=== PATIENT | male | born 1960 | race African-American/Black ===

== ENCOUNTER 2022-08-17 08:26 | Inpatient (IN) ==
[2022-08-17] MEDS ORDERED: SODIUM CHLORIDE 0.9% 1,000 ML IV STA ×2 (09:34→12:11)
[2022-08-17] MEDS ORDERED: ONDANSETRON 4 MG/2 ML VIAL IV STA (09:34)
[2022-08-17 10:24] LABS: Basophils % 0.3 % (0.0-0.8); Eosinophils # 0.1 10*3/uL (0.0-0.87); Eosinophils % 0.9 % (0.00-10.9); Hematocrit 37.2 VOL% (42.0-52.0); Hemoglobin 13.3 GM/DL (14.0-18.0); Immature Granulocytes % 1.7 %; Immature Granulocytes Absolute 0.23 #; Lymphocytes # 0.9 10*3/uL (1.4-4.0); Lymphocytes % 6.6 % (21.2-54.2); Mean Corpuscular HGB Conc 35.8 GM/DL (32-36); Mean Platelet Volume 12.6 FL (9.6-12.0); Monocytes # 1.9 10*3/uL (0.11-0.8); Monocytes % 14.1 % (1.7-12.7); Neutrophils % 76.4 % (38.7-73.9); Platelet Count 310 T/CUMM (130-400); Red Blood Count 4.48 MC/CUMM (3.8-5.5); Red Cell Distribution Width 23.2 % (9.3-17.3); White Blood Count 13.7 T/CUMM (4-12)
[2022-08-17 10:57] LABS: Albumin 1.5 G/DL (3.4-5.0); Osmolality,Calculated 282.1 MOS/KG (273-304); Potassium 4.7 MMOL/L (3.5-5.1); Total Protein 6.8 G/DL (6.4-8.2)
[2022-08-17] MEDS ORDERED: DEXTROSE 50% 25 GM/50 ML VIAL IV STA ×2 (12:05→16:41)
[2022-08-17] MEDS ORDERED: DEXTROSE 50% 25 GM/50 ML SYRINGE IV STA (12:06)
[2022-08-17 14:11] LABS: Hyaline Casts,Urine 9 /LPF (0-3); Mucus,Urine Occasional /LPF (Occasional); Protein,Urine Trace mg/dL (Negative); RBC,Urine 82 /HPF (0-4); Squamous Epithelial Cell,Urine Occasional /HPF (0-10); Urine Appearance Clear (Clear); Urine Color Yellow (Yellow); Urine pH 5.5 (4.5-8.0)
[2022-08-17 14:12] LABS: Bilirubin,Urine Large mg/dL (Negative); Blood, Urine Large mg/dL (Negative); Glucose,Urine (UA) Negative (Negative); Ketones,Urine Negative (Negative); Nitrite,Urine Negative (Negative)
[2022-08-17 14:27] LABS: Barbiturates Screen,Urine Negative (Negative); Benzodiazepines Screen,Urine Negative (Negative); Cannabinoid Screen,Urine Positive (Negative); Opiate Screen,Urine Negative (Negative); Phencyclidine Screen,Urine Negative (Negative)
[2022-08-17] MEDS ORDERED: SIMETHICONE CHEW 125 MG TABLET PO PRN (15:06)
[2022-08-17] MEDS ORDERED: GLUCAGON 1 MG VIAL IM PRN (15:06)
[2022-08-17] MEDS ORDERED: DOCUSATE SODIUM 100 MG CAPSULE PO PRN (15:06)
[2022-08-17] MEDS ORDERED: DEXTROSE 10% 250 ML BAG IV PRN (15:06)
[2022-08-17] MEDS: SODIUM CHLORIDE 0.9% 1,000 ML IV SCH ×2 (16:32→23:10)
[2022-08-17] MEDS ORDERED: DEXTROSE 10% 250 ML BAG IV STA (16:46)
[2022-08-17 18:18] LABS: Calcium 8.3 MG/DL (8.5-10.1); Osmolality,Calculated 286.7 MOS/KG (273-304); Potassium 5.3 MMOL/L (3.5-5.1)
[2022-08-17] MEDS: ONDANSETRON 4 MG/2 ML VIAL IV PRN (19:41)
[2022-08-17] MEDS: MORPHINE 2 MG/1 ML SYRINGE IV PRN (19:41)
[2022-08-18] MEDS: SODIUM CHLORIDE 0.9% 1,000 ML IV SCH ×2 (01:30→11:30)
[2022-08-18] MEDS: MORPHINE 2 MG/1 ML SYRINGE IV PRN ×3 (03:10→20:19)
[2022-08-18] MEDS: ONDANSETRON 4 MG/2 ML VIAL IV PRN ×2 (03:11→15:05)
[2022-08-18 04:25] LABS: Basophils # 0.1 10*3/uL (0.0-0.2); Basophils % 0.5 % (0.0-0.8); Eosinophils # 0.3 10*3/uL (0.0-0.87); Eosinophils % 2.4 % (0.00-10.9); Hematocrit 34.2 VOL% (42.0-52.0); Hemoglobin 12.2 GM/DL (14.0-18.0); Immature Granulocytes % 2.4 %; Immature Granulocytes Absolute 0.26 #; Mean Corpuscular HGB Conc 35.7 GM/DL (32-36); Mean Platelet Volume 11.6 FL (9.6-12.0); Monocytes # 2.2 10*3/uL (0.11-0.8); Monocytes % 19.9 % (1.7-12.7); Neutrophils % 65.8 % (38.7-73.9); Platelet Count 268 T/CUMM (130-400); Red Blood Count 4.12 MC/CUMM (3.8-5.5); Red Cell Distribution Width 23.1 % (9.3-17.3); White Blood Count 10.9 T/CUMM (4-12)
[2022-08-18 04:42] LABS: Albumin 1.4 G/DL (3.4-5.0); Calcium 8.2 MG/DL (8.5-10.1); Osmolality,Calculated 286.4 MOS/KG (273-304); Total Protein 6.2 G/DL (6.4-8.2)
[2022-08-18 04:51] LABS: Eosinophils 2 % (0-10); Lymphocytes 8 % (20-55); Platelet Estimate Adequate; Total Cells Counted 100
[2022-08-18] MEDS: PANTOPRAZOLE 40 MG VIAL IV SCH (08:02)
[2022-08-18 08:52] LABS: INR 1.1; PT Patient Result 12.3 SECS (10.1-12.1); Partial Thromboplastin Time 35.6 SECS (23.7-32.9)
[2022-08-18] MEDS: SODIUM BICARB INJ 100 MEQ in DEXTROSE 5% NACL 0.45% 1,000 ML IV SCH ×2 (12:44→22:48)
[2022-08-18] MEDS ORDERED: MORPHINE 2 MG/1 ML SYRINGE IV PRN (21:22)
[2022-08-18] MEDS ORDERED: MORPHINE 2 MG/1 ML SYRINGE IV ONE (21:22)
[2022-08-19 07:53] LABS: Basophils # 0.1 10*3/uL (0.0-0.2); Basophils % 0.4 % (0.0-0.8); Eosinophils # 0.1 10*3/uL (0.0-0.87); Eosinophils % 1.2 % (0.00-10.9); Hematocrit 35.9 VOL% (42.0-52.0); Hemoglobin 12.6 GM/DL (14.0-18.0); Immature Granulocytes % 1.2 %; Immature Granulocytes Absolute 0.13 #; Lymphocytes # 0.8 10*3/uL (1.4-4.0); Lymphocytes % 7.5 % (21.2-54.2); Mean Corpuscular HGB Conc 35.1 GM/DL (32-36); Mean Corpuscular Volume 83.7 FL (87-102); Monocytes # 2.3 10*3/uL (0.11-0.8); Monocytes % 20.2 % (1.7-12.7); Neutrophils % 69.5 % (38.7-73.9); Platelet Count 293 T/CUMM (130-400); Red Blood Count 4.29 MC/CUMM (3.8-5.5); Red Cell Distribution Width 23.5 % (9.3-17.3); White Blood Count 11.2 T/CUMM (4-12)
[2022-08-19 08:14] LABS: Band Neutrophils 1 % (0-10); Eosinophils 2 % (0-10); Lymphocytes 5 % (20-55); Platelet Estimate Adequate; Total Cells Counted 100
[2022-08-19 08:20] LABS: Albumin 1.3 G/DL (3.4-5.0); Bilirubin,Total 9.1 MG/DL (0.20-1.00); Calcium 8.5 MG/DL (8.5-10.1); Osmolality,Calculated 284.4 MOS/KG (273-304); Potassium 3.7 MMOL/L (3.5-5.1); Total Protein 6.2 G/DL (6.4-8.2)
[2022-08-19] MEDS: PANTOPRAZOLE 40 MG VIAL IV SCH (09:38)
[2022-08-19] MEDS: SODIUM BICARB INJ 100 MEQ in DEXTROSE 5% NACL 0.45% 1,000 ML IV SCH (09:43)
[2022-08-19] MEDS ORDERED: ALBUMIN 25% 12.5 GM/50 ML VIAL IV ONE ×2 (15:56→15:57)
[2022-08-19] MEDS ORDERED: TISSUE ADHESIVE 1 EACH APPLICATOR TOP ONE (16:00)
[2022-08-19 16:56] VITALS: BP 106/54
[2022-08-19 17:46] LABS: Neutrophils,Peritoneal Fluid 69 %
[2022-08-19 19:00] LABS: RBC,Peritoneal Fluid < 1 T/CUMM
== END 2022-08-19 18:54 | disposition hospice, home (50) | DRG 683 ==
LOC: N.ED 08:26 → N.EDINP 15:06 → N.TELES 16:34
PROVIDERS: ADMIT Internal Medicine; ATTEND Internal Medicine